=== PATIENT | female | born 1990 | race Caucasian/White ===

== ENCOUNTER 2021-09-19 12:43 | Emergency (ER) | payer BC, MEDICAID, OTHER ==
[2021-09-19 12:48] VITALS: BP 126/77; PULSE 16
== END 2021-09-19 14:36 | disposition home or self-care (01) ==
LOC: CC.ED 12:43
DX: S93.401A Sprain of unspecified ligament of right ankle, initial encounter (principal); W18.30XA Fall on same level, unspecified, initial encounter; Y92.009 Unspecified place in unspecified non-institutional (private) residence as the place of occurrence of the external cause
CPT/HCPCS: 29515; 73610-RT; 99283; 99283-25